=== PATIENT | male | born 1970 | race Caucasian/White ===

== ENCOUNTER → 2024-09-09 08:30 | Outpatient (REF) | payer OTHER, SELFPAY | LOC: RAD 08:30 | PROVIDERS: ATTENDING PHYSICIAN Physician Assistant Medical | DX: M25.512 Pain in left shoulder (principal) | CPT/HCPCS: 73030 ==

== ENCOUNTER 2024-10-26 11:09 | Outpatient (RCR) | payer OTHER, SELFPAY | END 2024-10-26 23:59 | disposition home or self-care (01) | LOC: RPT 11:09 | PROVIDERS: ATTENDING PHYSICIAN Physician Assistant Medical; FAMILY PHYSICIAN Family Medicine | DX: M25.512 Pain in left shoulder (principal); Z73.6 Limitation of activities due to disability; M62.81 Muscle weakness (generalized) | CPT/HCPCS: 97010; 97110; 97140; 97162 ==

== ENCOUNTER 2024-11-23 09:08 | Outpatient (RCR) | payer OTHER, SELFPAY | END 2024-11-23 23:59 | disposition home or self-care (01) | LOC: RPT 09:08 | PROVIDERS: ATTENDING PHYSICIAN Physician Assistant Medical; FAMILY PHYSICIAN Family Medicine | DX: M25.512 Pain in left shoulder (principal); Z73.6 Limitation of activities due to disability; M62.81 Muscle weakness (generalized) | CPT/HCPCS: 97110; 97112; 97140 ==

== ENCOUNTER → 2025-04-07 07:05 | Outpatient (REF) | payer OTHER, SELFPAY | LOC: PAVMRI 07:05 | PROVIDERS: ATTENDING PHYSICIAN Physician Assistant Medical | DX: M25.512 Pain in left shoulder (principal) | CPT/HCPCS: 73221 ==

== ENCOUNTER 2025-05-26 08:59 | Emergency (ER) | payer OTHER, SELFPAY ==
[2025-05-26 09:07] VITALS: BP 146/91
--- NOTE | 2025-05-26 09:55 | ED.GENMED ---
History of Present Illness
General
Chief Complaint: Back Pain
Source: patient
Exam Limitations: none
Time Seen by Provider: 05/26/25 09:44
Nursing documentation reviewed up to this point in time: agreed with
History of Present Illness
History of Present Illness:
54-year-old male past medical history of hypertension presenting to the emergency department today with concerns of back pain rating down the right leg starting yesterday. Has had similar episodes in the past. He claims that the episodes are few
and far between. Denies any change in bowel or bladder function denies any fevers or overlying skin changes.
Past History
Past History
ED Past Medical History: GERD and HTN
ED Past Surgical History: Orthopedic
Social History
Tobacco: Non-smoker
Alcohol: None
Personal:
Living: with family
Employment: Employed (Desk work)
Review of Systems
Review of Systems
Allergies reviewed?: Yes
All Other Systems: ROS reviewed and negative except as documented in HPI and ROS
Phy Exam
Physical Exam
Physical Exam:
GENERAL: Alert , in no apparent distress
EYE: pupils equal and reactive
NECK: Supple, no significant adenopathy.
ENT: o/p clr, mmm.
CARDIAC: Regular rate and rhythm .
LUNGS: Clear breath sounds bilaterally, no acute respiratory distress, no wheezes/rales/rhonchi
ABDOMEN: Soft, without focal tenderness, no r/g, no cvat
NEUROLOGICAL: Alert and oriented, no focal neuro deficits
SKIN: Warm and dry, skin intact.
MUSCULOSKELETAL: No edema, well perfused.
PSYCH: Normal and appropriate interaction.
Course
Orders/Labs/Results
Orders:
Orders
05/26/25 09:53
Dexamethasone Pf [Decadron] 10 mg PO NOW STA
Diazepam [Valium] 5 mg PO NOW STA
Ketorolac [Toradol] 30 mg IM NOW STA
Lumbar Spine, 2 or 3 View [CR Lumbar Spine 2 Or 3 Views] Urgent
Comment:
Reason For Exam: recurrent back pain no imaging in the past
Vital Signs
Initial and Last Documented VS:
Initial Vital Signs
Temp Pulse Resp BP Pulse Ox
98.0 F 69 20 146/91 98
05/26/25 09:07 05/26/25 09:07 05/26/25 09:07 05/26/25 09:07 05/26/25 09:07
Last Documented Vital Signs
Temp Pulse Resp BP Pulse Ox
98.0 F 69 20 146/91 98
05/26/25 09:07 05/26/25 09:07 05/26/25 09:07 05/26/25 09:07 05/26/25 09:57
MDM/Problems Addressed
MDM/Problems Addressed:
54-year-old male presenting to the emergency department today with concerns of back pain described as achy throbbing rating down the right leg. Has had similar episodes in the past that he describes as 'sciatica'. He claims that these episodes are
few and far between but does feel very similar to previous episodes he is had in the past. Denies any bowel or bladder changes denies any infectious symptoms. Neurologically intact on examination. No overlying skin changes. Good range of motion
of the lower extremities. Patient no distress symptoms seems consistent with mechanical back pain. He was given medications here with significant improvement of symptoms. Stable for discharge. Return precautions given.
*Pulse Oximetry
SaO2: 98
Oxygen Mode of Delivery: Room air
Patient hypoxic: no (98)
*Critical Care Note
Total Time (30-74mins, 75-104mins- exclusive of procedures): Not Applicable
ED Attending Note
-
Portions of this chart may have been created with voice recognition software.� Occasional wrong word or��sound alike� substitutions may have occurred due to the inherent limitations of voice recognition software.
Discharge Plan
Departure
Patient Disposition: Home (Routine Discharge)
Date of Disposition: 05/26/25
Time of Disposition: 11:34
Patient with high blood pressure during this ER visit?: No
Condition: Good
Covid-19: Not Applicable
Discharge Problem:
Low back pain
Instructions: Low Back Pain (DC)
Prescriptions:
New
cyclobenzaprine 10 mg tablet
10 mg PO HS PRN (Reason: muscle spasm) Qty: 10 0RF
prednisone 20 mg tablet
40 mg PO DAILY 4 Days Qty: 8 0RF
ibuprofen 600 mg tablet
600 mg PO Q8H PRN (Reason: Pain) Qty: 12 0RF
No Action
amlodipine 5 mg Tablet
5 mg PO DAILY
losartan 50 mg tablet
50 mg PO DAILY
famotidine [Pepcid AC] 20 mg Tablet
20 mg PO DAILYPRN PRN (Reason: heartburn)
acetaminophen [Tylenol Extra Strength] 500 mg tablet
1,000 mg PO Q6HPRN PRN (Reason: mild pain) Qty: 1 0RF
ibuprofen 200 mg tablet
400 - 600 mg PO Q6HPRN PRN (Reason: moderate pain) Qty: 1 0RF
polyethylene glycol 3350 [Miralax] 17 gram/dose powder
4 g PO DAILY PRN (Reason: Constipation) Qty: 119 0RF
Rx Instructions:
start a laxative such as MIRALAX on day 2 after surgery if no bowel movement yet as long as no nausea/vomiting and passing gas
oxycodone 5 mg tablet
5 mg PO Q4HPRN PRN (Reason: breakthrough/severe pain) Qty: 10 0RF
Referrals:
Umair Muniz PA-C [Family Provider, Family Practice]
Keaton Olivier MD [Active, Anesthesiology] - Follow up in 5-7 days
Activity Restrictions/Additional Instructions:
You came to the emergency department today with concerns of back pain. Here you have a reassuring assessment. Please follow close with your primary care doctor and take the prescribed indications. Return for any worsening, new or concerning
symptoms.
Interventions
Interventions:
*Neglect/Abuse Screening Last Done: 05/26/25 10:33
[facility] Risk Assessment Tool Last Done: 05/26/25 10:33
*Risk Screen - Suicide (C-SSRS) Last Done: 05/26/25 10:33
ED-Musculoskeletal Assessment Last Done: 05/26/25 10:33
Discharge Date and Time
Print Language: UKRAINIAN
[2025-05-26] MEDS: VALIUM 5 MG PO (10:02)
[2025-05-26] MEDS: DECADRON 10 MG PO (10:02)
[2025-05-26] MEDS: TORADOL 30 MG IM (10:02)
[2025-05-26 11:45] VITALS: BP 137/88
== END 2025-05-26 11:46 | disposition home or self-care (01) ==
LOC: EMR 08:59
PROVIDERS: EMERGENCY PHYSICIAN Student in an Organized Health Care Education/Training Program; FAMILY PHYSICIAN Physician Assistant Medical
DX: M54.50 Low back pain, unspecified (principal); M79.604 Pain in right leg; M79.605 Pain in left leg; I10 Essential (primary) hypertension; K21.9 Gastro-esophageal reflux disease without esophagitis; Z87.891 Personal history of nicotine dependence; Z87.442 Personal history of urinary calculi; Z90.49 Acquired absence of other specified parts of digestive tract
CPT/HCPCS: 99284; 96372; 72100